=== PATIENT | male | born 1975 | race African-American/Black ===

== ENCOUNTER 2021-03-06 23:42 | Inpatient (IN) | payer OTHER ==
[~2021-03-06] VITALS: Ht 182.9 cm; Wt 61.2 kg
[2021-03-07] VITALS (73 sets, daily range): BP systolic 80–150; BP diastolic 47–97
[2021-03-07] MEDS ORDERED: DEXTROSE 5% WATER 1,000 ML IV ONE (01:15)
[2021-03-07] MEDS ORDERED: DEXTROSE 50% WATER 50ML SYRINGE IV ONE ×2 (01:15→05:30)
[2021-03-07] MEDS ORDERED: VANCOMYCIN 1 G PREMIX 200 ML IV ONE (02:45)
[2021-03-07] MEDS ORDERED: PIPERACILLIN/TAZ 3.375G PREMIX 50 ML IV ONE (02:45)
[2021-03-07 03:42] LABS: CHLORIDE 100 mEq/L (98-107)
[2021-03-07 03:44] LABS: BG CARBOXYHEMOGLOBIN 0.8 % (0.5-1.5); BG DEOXYHEMOGLOBIN 1.8 % (0.0-5.0); BG FRACTION INSPIRED OXYGEN 28; BG HCO3 ACT 29.7 mmol/L (22.0-26.0); BG OXYGEN SATURATION 98.2 % (92.0-98.5); BG OXYHEMOGLOBIN 97.4 % (94.0-97.0); BG PCO2 38.9 mmHg (35.0-45.0); BG PO2 111.7 mmHg (75.0-100.0); BG SAMPLE SITE LEFT RADIAL; BG TOTAL HEMOGLOBIN 8.3 g/dL (12.0-18.0); BG VENT MODE NASAL CANNULA
[2021-03-07 03:46] LABS: ETHANOL BLOOD < 10 mg/dL
[2021-03-07 03:47] LABS: HEMATOCRIT. 23.5 % (42.0-52.0); HEMOGLOBIN. 7.6 g/dL (14.0-18.0); MEAN CORPUSCULAR HEMOGLOBIN 31.6 pg (28.0-32.0); MEAN CORPUSCULAR VOLUME 98.2 fL (80.0-94.0); MEAN PLATELET VOLUME 8.3 fl (7.4-10.4); PLATELET 518 x1000/uL (130-400); RED BLOOD CELL COUNT 2.39 mill/uL (4.7-6.1); RED CELL DISTRIBUTION WIDTH 16.4 % (11.6-14.6)
[2021-03-07] MEDS ORDERED: DEXT 10% WATER 1,000 ML IV ONE (05:30)
[2021-03-07] MEDS ORDERED: LORAZEPAM 2MG/ML CPJ IV ONE (05:30)
[2021-03-07] MEDS ORDERED: IOHEXOL-350 100 ML BOTTLE ONE (05:36)
[2021-03-07 06:20] LABS: PLATELET ESTIMATE INCREASED
[2021-03-07] MEDS ORDERED: ONDANSETRON HCL 4MG/2ML INJ IV PRN (09:00)
[2021-03-07] MEDS ORDERED: IPRATROPIUM/ALBUTEROL 0.5-3(2.5)MG/3ML NEB HHN PRN (09:00)
[2021-03-07] MEDS ORDERED: HYDROCODONE/ACETAMINOPHEN 5/325MG TABLET PO PRN (09:00)
[2021-03-07] MEDS ORDERED: LORAZEPAM 0.5MG TABLET PO PRN (09:00)
[2021-03-07] MEDS ORDERED: CLONIDINE 0.1MG TABLET PO PRN (09:00)
[2021-03-07] MEDS ORDERED: DOCUSATE SODIUM 100MG CAPSULE PO PRN (09:00)
[2021-03-07] MEDS ORDERED: ACETAMINOPHEN 325MG TABLET PO PRN ×2 (09:00)
[2021-03-07] MEDS ORDERED: DEXT 5%/0.9% NACL 1,000 ML IV SCH (09:15)
[2021-03-07] MEDS ORDERED: LACTULOSE 300 ML in WATER FOR IRRIGATION,STERILE 700 ML IR NR ×2 (09:30→11:00)
[2021-03-07] MEDS ORDERED: PHENYLEPHRINE 100 MG in DEXT 5% WATER 240 ML IV PRN ×2 (09:45→23:15)
[2021-03-07] MEDS: VANCOMYCIN 750 MG PREMIX 150 ML IV SCH ×2 (10:50→18:15)
[2021-03-07] MEDS: DEXTROSE 50% WATER 50ML SYRINGE IV PRN ×4 (10:52→22:33)
[2021-03-07] MEDS: BLOOD SUGAR DIAGNOSTIC STRIP TEST SCH ×3 (11:29→21:00)
[2021-03-07] MEDS: INSULIN LISPRO 100 UNITS/ML SUBCUT SCH ×3 (11:29→21:00)
[2021-03-07 12:02] LABS: T4 FREE 1.74 ng/dL (0.76-1.46)
[2021-03-07 12:43] LABS: VITAMIN B12 SERUM > 2000.0 pg/mL (211-911)
[2021-03-07] MEDS: RIFAXIMIN 550 MG TABLET PO SCH ×2 (13:45→22:40)
[2021-03-07] MEDS ORDERED: PIPERACILLIN/TAZOBACTAM 3.375 G in DEXTROSE 5% WATER 50 ML IV SCH (14:00)
[2021-03-07] MEDS: LACTULOSE 20G/30ML UDC PO SCH ×2 (14:00→22:40)
[2021-03-07 14:01] LABS: INR 1.5; PROTHROMBIN TIME 15.4 sec (9.6-11.0)
[2021-03-07] MEDS: PIPERACILLIN/TAZOBACTAM 3.375 G in DEXTROSE 5% WATER 50 ML IV SCH ×2 (14:22→22:40)
[2021-03-07 15:25] LABS: HEMOGLOBIN 9.1 g/dL (14.0-18.0)
[2021-03-07] MEDS: PANTOPRAZOLE SODIUM 40 MG/VIAL IV SCH (16:27)
[2021-03-07] MEDS ORDERED: DEXT 10% WATER 500 ML IV ONE (20:00)
[2021-03-07 23:44] LABS: T4 FREE 1.53 ng/dL (0.76-1.46)
[2021-03-08] VITALS (89 sets, daily range): BP systolic 93–166; BP diastolic 57–93
[2021-03-08] MEDS: DEXTROSE 50% WATER 50ML SYRINGE IV PRN ×4 (02:12→17:54)
[2021-03-08] MEDS: VANCOMYCIN 750 MG PREMIX 150 ML IV SCH ×2 (03:24→10:18)
[2021-03-08 05:25] LABS: CLARITY URINE CLOUDY (CLEAR); COLOR URINE YELLOW (YELLOW); KETONES URINE NEGATIVE (NEGATIVE); LEUKOCYTE ESTERASE URINE NEGATIVE (NEGATIVE); NITRITE URINE NEGATIVE (NEGATIVE); OCCULT BLOOD URINE TRACE (NEGATIVE); PROTEIN URINE TRACE (NEGATIVE); SPECIFIC GRAVITY URINE 1.025 (1.005-1.030); UROBILINOGEN URINE 0.2 E.U./dL (0.2-1.0)
[2021-03-08 05:41] LABS: *AMPHETAMINES SCREEN URINE NEGATIVE (NEGATIVE); *BARBITURATES SCREEN URINE NEGATIVE (NEGATIVE); *BENZODIAZEPINES SCREEN URINE NEGATIVE (NEGATIVE); *COCAINE SCREEN URINE NEGATIVE (NEGATIVE); CANNABINOID URINE SCREEN NEGATIVE (NEGATIVE); METHADONE URINE SCREEN NEGATIVE (NEGATIVE); OPIATES URINE SCREEN NEGATIVE (NEGATIVE); PHENCYCLIDINE URINE SCREEN PRESUMTIVE POSITIVE (NEGATIVE)
[2021-03-08] MEDS: BLOOD SUGAR DIAGNOSTIC STRIP TEST SCH ×4 (05:52→21:55)
[2021-03-08] MEDS: LACTULOSE 20G/30ML UDC PO SCH ×4 (05:53→21:55)
[2021-03-08] MEDS: PIPERACILLIN/TAZOBACTAM 3.375 G in DEXTROSE 5% WATER 50 ML IV SCH ×3 (06:00→20:20)
[2021-03-08] MEDS: INSULIN LISPRO 100 UNITS/ML SUBCUT SCH ×4 (06:00→21:00)
[2021-03-08 06:06] LABS: CHLORIDE 102 mEq/L (98-107)
[2021-03-08 06:13] LABS: INR 1.5; PROTHROMBIN TIME 15.8 sec (9.6-11.0)
[2021-03-08 06:14] LABS: HEMATOCRIT. 22.9 % (42.0-52.0); HEMOGLOBIN. 7.5 g/dL (14.0-18.0); MEAN CORPUSCULAR HEMOGLOBIN 31.9 pg (28.0-32.0); MEAN CORPUSCULAR VOLUME 97.1 fL (80.0-94.0); MEAN PLATELET VOLUME 8.3 fl (7.4-10.4); PLATELET 471 x1000/uL (130-400); RED BLOOD CELL COUNT 2.36 mill/uL (4.7-6.1); RED CELL DISTRIBUTION WIDTH 16.8 % (11.6-14.6)
[2021-03-08 06:15] LABS: HDL CHOLESTEROL 40 mg/dL (40-59)
[2021-03-08 06:25] LABS: FOLIC ACID (FOLATE) SERUM 9.8 ng/mL (>5.38)
[2021-03-08 06:32] LABS: LDL CHOLESTEROL 3 mg/dL (5-100)
[2021-03-08] MEDS ORDERED: LIDOCAINE HCL 1% 30ML VIAL (10MG/ML) ONE ×2 (08:21→15:12)
[2021-03-08] MEDS: DEXT 10% WATER 1,000 ML IV SCH ×2 (09:15→16:50)
[2021-03-08] MEDS: FOLIC ACID 1MG TABLET PO SCH (10:17)
[2021-03-08] MEDS: MULTIVITAMINS,THER W-MINERALS TABLET PO SCH (10:17)
[2021-03-08] MEDS: RIFAXIMIN 550 MG TABLET PO SCH ×2 (10:17→20:20)
[2021-03-08] MEDS: THIAMINE HCL 100MG TABLET PO SCH (10:17)
[2021-03-08] MEDS: PANTOPRAZOLE SODIUM 40 MG/VIAL IV SCH ×2 (10:17→16:48)
[2021-03-08 10:57] LABS: PLATELET ESTIMATE INCREASED
[2021-03-08] MEDS ORDERED: POLYMYXIN B SULFATE 500000 UNITS/VIAL ONE (15:12)
[2021-03-08] MEDS ORDERED: BUPIVACAINE HCL/PF 0.5% (5MG/ML) 10ML ONE (15:12)
[2021-03-08] MEDS ORDERED: VANCOMYCIN HCL 1 GM/VIAL ONE (15:12)
[2021-03-08] MEDS ORDERED: MIDAZOLAM HCL 2 MG/2 ML VIAL ONE (15:57)
[2021-03-08] MEDS ORDERED: FENTANYL CITRATE/PF 50MCG/ML 2ML VIAL ONE (15:57)
[2021-03-08 19:23] LABS: CHLORIDE 101 mEq/L (98-107)
[2021-03-08 19:32] LABS: HEMATOCRIT. 30.2 % (42.0-52.0); HEMOGLOBIN. 9.7 g/dL (14.0-18.0); MEAN CORPUSCULAR HEMOGLOBIN 29.7 pg (28.0-32.0); MEAN CORPUSCULAR VOLUME 92.6 fL (80.0-94.0); MEAN PLATELET VOLUME 7.9 fl (7.4-10.4); PLATELET 420 x1000/uL (130-400); RED BLOOD CELL COUNT 3.27 mill/uL (4.7-6.1); RED CELL DISTRIBUTION WIDTH 19.7 % (11.6-14.6)
[2021-03-08 21:37] LABS: PLATELET ESTIMATE INCREASED
[2021-03-09] VITALS (94 sets, daily range): BP systolic 92–133; BP diastolic 48–93
[2021-03-09] MEDS: VANCOMYCIN 1 G PREMIX 200 ML IV SCH ×3 (00:04→20:20)
[2021-03-09] MEDS: DEXT 10% WATER 1,000 ML IV SCH ×2 (05:37→20:19)
[2021-03-09] MEDS: PIPERACILLIN/TAZOBACTAM 3.375 G in DEXTROSE 5% WATER 50 ML IV SCH ×3 (05:38→21:53)
[2021-03-09] MEDS: LACTULOSE 20G/30ML UDC PO SCH ×3 (05:38→21:02)
[2021-03-09] MEDS: INSULIN LISPRO 100 UNITS/ML SUBCUT SCH ×4 (07:00→21:03)
[2021-03-09] MEDS: BLOOD SUGAR DIAGNOSTIC STRIP TEST SCH ×4 (07:00→20:56)
[2021-03-09] MEDS: RIFAXIMIN 550 MG TABLET PO SCH ×2 (09:10→20:19)
[2021-03-09] MEDS: MULTIVITAMINS,THER W-MINERALS TABLET PO SCH (09:10)
[2021-03-09] MEDS: PANTOPRAZOLE SODIUM 40 MG/VIAL IV SCH ×2 (09:10→17:02)
[2021-03-09] MEDS: FOLIC ACID 1MG TABLET PO SCH (09:11)
[2021-03-09] MEDS: THIAMINE HCL 100MG TABLET PO SCH (09:11)
[2021-03-09] MEDS: MIDODRINE HCL 5MG TABLET PO SCH ×3 (09:47→17:02)
[2021-03-10] VITALS (50 sets, daily range): BP systolic 85–114; BP diastolic 51–81
[2021-03-10] MEDS: PIPERACILLIN/TAZOBACTAM 3.375 G in DEXTROSE 5% WATER 50 ML IV SCH ×3 (05:37→22:38)
[2021-03-10] MEDS: LACTULOSE 20G/30ML UDC PO SCH ×3 (05:44→22:37)
[2021-03-10 05:45] LABS: BASOPHILS % 0.2 % (0.0-2.0); EOSINOPHILS % 0.7 % (0.0-5.0); HEMATOCRIT. 27.7 % (42.0-52.0); LYMPHOCYTES % 10.9 % (20.0-50.0); MEAN CORPUSCULAR HEMOGLOBIN 29.8 pg (28.0-32.0); MEAN CORPUSCULAR VOLUME 91.5 fL (80.0-94.0); MEAN PLATELET VOLUME 8.1 fl (7.4-10.4); MONOCYTES % 5.1 % (2.0-8.0); NEUTROPHILS % 83.1 % (40.0-76.0); PLATELET 352 x1000/uL (130-400); RED BLOOD CELL COUNT 3.02 mill/uL (4.7-6.1); RED CELL DISTRIBUTION WIDTH 19.3 % (11.6-14.6)
[2021-03-10] MEDS: INSULIN LISPRO 100 UNITS/ML SUBCUT SCH ×4 (07:00→21:00)
[2021-03-10 07:08] LABS: CHLORIDE 101 mEq/L (98-107)
[2021-03-10] MEDS: BLOOD SUGAR DIAGNOSTIC STRIP TEST SCH ×4 (07:09→21:00)
[2021-03-10] MEDS: PANTOPRAZOLE SODIUM 40 MG/VIAL IV SCH ×2 (08:40→16:37)
[2021-03-10] MEDS: MULTIVITAMINS,THER W-MINERALS TABLET PO SCH (08:40)
[2021-03-10] MEDS: RIFAXIMIN 550 MG TABLET PO SCH ×2 (08:40→20:59)
[2021-03-10] MEDS: FOLIC ACID 1MG TABLET PO SCH (08:40)
[2021-03-10] MEDS: THIAMINE HCL 100MG TABLET PO SCH (08:40)
[2021-03-10] MEDS: VANCOMYCIN 1 G PREMIX 200 ML IV SCH ×2 (08:40→21:00)
[2021-03-10] MEDS: MIDODRINE HCL 5MG TABLET PO SCH ×3 (08:41→16:37)
[2021-03-10] MEDS: DEXT 10% WATER 1,000 ML IV SCH (11:15)
[2021-03-11] VITALS (36 sets, daily range): BP systolic 97–162; BP diastolic 60–133
[2021-03-11] MEDS: PIPERACILLIN/TAZOBACTAM 3.375 G in DEXTROSE 5% WATER 50 ML IV SCH ×2 (05:37→14:54)
[2021-03-11] MEDS: LACTULOSE 20G/30ML UDC PO SCH ×2 (05:42→14:00)
[2021-03-11 05:51] LABS: BASOPHILS % 0.1 % (0.0-2.0); HEMATOCRIT. 26.2 % (42.0-52.0); HEMOGLOBIN. 8.8 g/dL (14.0-18.0); LYMPHOCYTES % 14.8 % (20.0-50.0); MEAN CORPUSCULAR HEMOGLOBIN 30.6 pg (28.0-32.0); MEAN CORPUSCULAR VOLUME 91.2 fL (80.0-94.0); MEAN PLATELET VOLUME 8.3 fl (7.4-10.4); MONOCYTES % 5.9 % (2.0-8.0); NEUTROPHILS % 78.2 % (40.0-76.0); PLATELET 320 x1000/uL (130-400); RED BLOOD CELL COUNT 2.88 mill/uL (4.7-6.1); RED CELL DISTRIBUTION WIDTH 19.1 % (11.6-14.6)
[2021-03-11 05:53] LABS: CHLORIDE 103 mEq/L (98-107)
[2021-03-11] MEDS: INSULIN LISPRO 100 UNITS/ML SUBCUT SCH ×4 (06:15→21:26)
[2021-03-11] MEDS: BLOOD SUGAR DIAGNOSTIC STRIP TEST SCH ×4 (06:15→21:23)
[2021-03-11] MEDS: PANTOPRAZOLE SODIUM 40 MG/VIAL IV SCH ×2 (08:09→16:37)
[2021-03-11] MEDS: VANCOMYCIN 1 G PREMIX 200 ML IV SCH (08:09)
[2021-03-11] MEDS: THIAMINE HCL 100MG TABLET PO SCH (08:10)
[2021-03-11] MEDS: RIFAXIMIN 550 MG TABLET PO SCH ×2 (08:10→22:52)
[2021-03-11] MEDS: MULTIVITAMINS,THER W-MINERALS TABLET PO SCH (08:10)
[2021-03-11] MEDS: FOLIC ACID 1MG TABLET PO SCH (08:10)
[2021-03-11] MEDS: MIDODRINE HCL 5MG TABLET PO SCH ×3 (08:10→16:37)
[2021-03-11] MEDS ORDERED: POTASSIUM CHLORIDE 20MEQ TABLET SR PO NR (15:45)
[2021-03-11] MEDS: CEFEPIME 2,000 MG in DEXT 5% WATER 100 ML IV SCH (22:52)
[2021-03-12] VITALS: BP 100/68
[2021-03-12 04:00] VITALS: BP 111/85
[2021-03-12] MEDS: INSULIN LISPRO 100 UNITS/ML SUBCUT SCH ×4 (06:12→20:52)
[2021-03-12] MEDS: BLOOD SUGAR DIAGNOSTIC STRIP TEST SCH ×4 (06:13→20:44)
[2021-03-12 07:37] LABS: BASOPHILS % 0.2 % (0.0-2.0); EOSINOPHILS % 0.6 % (0.0-5.0); HEMATOCRIT. 28.3 % (42.0-52.0); HEMOGLOBIN. 9.5 g/dL (14.0-18.0); LYMPHOCYTES % 11.5 % (20.0-50.0); MEAN CORPUSCULAR HEMOGLOBIN 30.6 pg (28.0-32.0); MEAN CORPUSCULAR VOLUME 90.9 fL (80.0-94.0); MEAN PLATELET VOLUME 8.5 fl (7.4-10.4); MONOCYTES % 6.1 % (2.0-8.0); NEUTROPHILS % 81.6 % (40.0-76.0); PLATELET 305 x1000/uL (130-400); RED BLOOD CELL COUNT 3.11 mill/uL (4.7-6.1); RED CELL DISTRIBUTION WIDTH 18.7 % (11.6-14.6)
[2021-03-12 08:00] VITALS: BP 105/78
[2021-03-12 08:05] LABS: CHLORIDE 103 mEq/L (98-107)
[2021-03-12] MEDS: PANTOPRAZOLE SODIUM 40 MG/VIAL IV SCH ×2 (08:38→17:21)
[2021-03-12] MEDS: LACTULOSE 20G/30ML UDC PO SCH (08:38)
[2021-03-12] MEDS: RIFAXIMIN 550 MG TABLET PO SCH (08:39)
[2021-03-12] MEDS: MULTIVITAMINS,THER W-MINERALS TABLET PO SCH (08:39)
[2021-03-12] MEDS: FOLIC ACID 1MG TABLET PO SCH (08:40)
[2021-03-12] MEDS: CEFEPIME 2,000 MG in DEXT 5% WATER 100 ML IV SCH ×2 (08:41→20:43)
[2021-03-12] MEDS: THIAMINE HCL 100MG TABLET PO SCH (08:41)
[2021-03-12] MEDS: MIDODRINE HCL 5MG TABLET PO SCH ×3 (08:42→16:50)
[2021-03-12 12:00] VITALS: BP 102/74
[2021-03-12 16:00] VITALS: BP 114/79
[2021-03-12 20:00] VITALS: BP 121/81
[2021-03-13] VITALS: BP 110/56
[2021-03-13 04:00] VITALS: BP 117/78
[2021-03-13] MEDS: BLOOD SUGAR DIAGNOSTIC STRIP TEST SCH ×4 (06:03→21:05)
[2021-03-13 06:46] LABS: BASOPHILS % 0.3 % (0.0-2.0); EOSINOPHILS % 0.6 % (0.0-5.0); HEMATOCRIT. 24.9 % (42.0-52.0); HEMOGLOBIN. 8.2 g/dL (14.0-18.0); LYMPHOCYTES % 14.3 % (20.0-50.0); MEAN CORPUSCULAR VOLUME 91.6 fL (80.0-94.0); MEAN PLATELET VOLUME 8.5 fl (7.4-10.4); MONOCYTES % 6.7 % (2.0-8.0); NEUTROPHILS % 78.1 % (40.0-76.0); PLATELET 255 x1000/uL (130-400); RED BLOOD CELL COUNT 2.72 mill/uL (4.7-6.1); RED CELL DISTRIBUTION WIDTH 18.4 % (11.6-14.6)
[2021-03-13] MEDS: INSULIN LISPRO 100 UNITS/ML SUBCUT SCH ×4 (06:55→21:00)
[2021-03-13 07:03] LABS: CHLORIDE 103 mEq/L (98-107)
[2021-03-13 08:00] VITALS: BP 106/77
[2021-03-13] MEDS: CEFEPIME 2,000 MG in DEXT 5% WATER 100 ML IV SCH ×2 (08:51→21:05)
[2021-03-13] MEDS: PANTOPRAZOLE SODIUM 40 MG/VIAL IV SCH ×2 (08:51→17:18)
[2021-03-13] MEDS: THIAMINE HCL 100MG TABLET PO SCH (08:51)
[2021-03-13] MEDS: MULTIVITAMINS,THER W-MINERALS TABLET PO SCH (08:51)
[2021-03-13] MEDS: FOLIC ACID 1MG TABLET PO SCH (08:51)
[2021-03-13] MEDS: MIDODRINE HCL 5MG TABLET PO SCH ×3 (08:53→17:12)
[2021-03-13] MEDS: LACTULOSE 20G/30ML UDC PO SCH (09:00)
[2021-03-13 12:00] VITALS: BP 110/75
[2021-03-13 16:00] VITALS: BP 103/77
[2021-03-13 20:00] VITALS: BP 107/79
[2021-03-14] VITALS: BP 102/68
[2021-03-14 04:00] VITALS: BP 103/72
[2021-03-14] MEDS: BLOOD SUGAR DIAGNOSTIC STRIP TEST SCH ×4 (06:21→20:09)
[2021-03-14] MEDS: INSULIN LISPRO 100 UNITS/ML SUBCUT SCH ×4 (06:37→20:14)
[2021-03-14 08:00] VITALS: BP 104/73
[2021-03-14] MEDS: THIAMINE HCL 100MG TABLET PO SCH (08:42)
[2021-03-14] MEDS: FOLIC ACID 1MG TABLET PO SCH (08:42)
[2021-03-14] MEDS: MIDODRINE HCL 5MG TABLET PO SCH ×3 (08:43→17:49)
[2021-03-14] MEDS: MULTIVITAMINS,THER W-MINERALS TABLET PO SCH (08:44)
[2021-03-14] MEDS: CEFEPIME 2,000 MG in DEXT 5% WATER 100 ML IV SCH ×2 (08:51→20:09)
[2021-03-14] MEDS: PANTOPRAZOLE SODIUM 40 MG/VIAL IV SCH ×2 (08:51→18:02)
[2021-03-14] MEDS: LACTULOSE 20G/30ML UDC PO SCH (08:51)
[2021-03-14 12:00] VITALS: BP 110/74
[2021-03-14 16:00] VITALS: BP 108/80
[2021-03-14 20:00] VITALS: BP 102/74
[2021-03-15] VITALS (7 sets, daily range): BP systolic 97–118; BP diastolic 65–80
[2021-03-15] MEDS: BLOOD SUGAR DIAGNOSTIC STRIP TEST SCH ×4 (06:28→21:35)
[2021-03-15] MEDS: INSULIN LISPRO 100 UNITS/ML SUBCUT SCH ×4 (06:33→21:45)
[2021-03-15] MEDS: CEFEPIME 2,000 MG in DEXT 5% WATER 100 ML IV SCH ×2 (08:58→21:35)
[2021-03-15] MEDS: FOLIC ACID 1MG TABLET PO SCH (08:59)
[2021-03-15] MEDS: PANTOPRAZOLE SODIUM 40 MG/VIAL IV SCH ×2 (08:59→16:58)
[2021-03-15] MEDS: MIDODRINE HCL 5MG TABLET PO SCH ×3 (08:59→16:58)
[2021-03-15] MEDS: MULTIVITAMINS,THER W-MINERALS TABLET PO SCH (08:59)
[2021-03-15] MEDS: THIAMINE HCL 100MG TABLET PO SCH (08:59)
[2021-03-16 04:51] VITALS: BP 99/48
[2021-03-16] MEDS: BLOOD SUGAR DIAGNOSTIC STRIP TEST SCH ×4 (05:54→21:00)
[2021-03-16] MEDS: INSULIN LISPRO 100 UNITS/ML SUBCUT SCH ×4 (05:59→21:00)
[2021-03-16 08:00] VITALS: BP 134/57
[2021-03-16 08:29] LABS: BASOPHILS % 0.6 % (0.0-2.0); EOSINOPHILS % 1.1 % (0.0-5.0); HEMATOCRIT. 32.4 % (42.0-52.0); HEMOGLOBIN. 10.7 g/dL (14.0-18.0); LYMPHOCYTES % 15.6 % (20.0-50.0); MEAN CORPUSCULAR HEMOGLOBIN 30.5 pg (28.0-32.0); MEAN CORPUSCULAR VOLUME 92.5 fL (80.0-94.0); MEAN PLATELET VOLUME 8.1 fl (7.4-10.4); MONOCYTES % 8.8 % (2.0-8.0); NEUTROPHILS % 73.9 % (40.0-76.0); PLATELET 333 x1000/uL (130-400); RED CELL DISTRIBUTION WIDTH 18.8 % (11.6-14.6)
[2021-03-16 08:37] LABS: CHLORIDE 100 mEq/L (98-107)
[2021-03-16] MEDS ORDERED: LIDOCAINE HCL/PF 2% 20MG/ML 5 ML/VIAL INJ SCH (09:30)
[2021-03-16] MEDS: MULTIVITAMINS,THER W-MINERALS TABLET PO SCH (10:50)
[2021-03-16] MEDS: PANTOPRAZOLE SODIUM 40 MG/VIAL IV SCH ×2 (10:50→17:51)
[2021-03-16] MEDS: FOLIC ACID 1MG TABLET PO SCH (10:50)
[2021-03-16] MEDS: THIAMINE HCL 100MG TABLET PO SCH (10:50)
[2021-03-16] MEDS: MIDODRINE HCL 5MG TABLET PO SCH ×3 (10:50→17:50)
[2021-03-16] MEDS: CEFEPIME 2,000 MG in DEXT 5% WATER 100 ML IV SCH ×2 (10:50→22:11)
[2021-03-16 12:08] VITALS: BP 114/83
[2021-03-16 16:00] VITALS: BP 83/46
[2021-03-16 20:00] VITALS: BP 81/62
[2021-03-16] MEDS ORDERED: MIDODRINE HCL 5MG TABLET PO NR (21:30)
[2021-03-16] MEDS ORDERED: ALBUMIN HUMAN 25GM/100ML (25%) IV NR (22:00)
[2021-03-17] VITALS: BP 72/43
[2021-03-17] MEDS ORDERED: SODIUM CHLORIDE 0.9% 250 ML IV ONE (00:45)
[2021-03-17 01:45] VITALS: BP 105/69
[2021-03-17 04:00] VITALS: BP 95/51
[2021-03-17] MEDS: BLOOD SUGAR DIAGNOSTIC STRIP TEST SCH ×2 (06:23→11:40)
[2021-03-17] MEDS: INSULIN LISPRO 100 UNITS/ML SUBCUT SCH ×2 (06:26→13:06)
[2021-03-17 08:00] VITALS: BP 96/71
[2021-03-17 09:34] LABS: BASOPHILS % 0.7 % (0.0-2.0); HEMOGLOBIN. 10.5 g/dL (14.0-18.0); LYMPHOCYTES % 14.9 % (20.0-50.0); MEAN CORPUSCULAR HEMOGLOBIN 30.3 pg (28.0-32.0); MEAN CORPUSCULAR VOLUME 92.8 fL (80.0-94.0); MEAN PLATELET VOLUME 8.1 fl (7.4-10.4); MONOCYTES % 8.5 % (2.0-8.0); NEUTROPHILS % 74.9 % (40.0-76.0); PLATELET 449 x1000/uL (130-400); RED BLOOD CELL COUNT 3.45 mill/uL (4.7-6.1); RED CELL DISTRIBUTION WIDTH 19.3 % (11.6-14.6)
[2021-03-17 09:47] LABS: CHLORIDE 101 mEq/L (98-107)
[2021-03-17] MEDS: CEFEPIME 2,000 MG in DEXT 5% WATER 100 ML IV SCH (11:47)
[2021-03-17] MEDS: PANTOPRAZOLE SODIUM 40 MG/VIAL IV SCH (11:47)
[2021-03-17] MEDS: FOLIC ACID 1MG TABLET PO SCH (11:48)
[2021-03-17] MEDS: MIDODRINE HCL 5MG TABLET PO SCH ×2 (11:48→13:06)
[2021-03-17] MEDS: MULTIVITAMINS,THER W-MINERALS TABLET PO SCH (11:48)
[2021-03-17] MEDS: THIAMINE HCL 100MG TABLET PO SCH (11:48)
[2021-03-17 12:00] VITALS: BP 99/71
[2021-03-17 15:19] VITALS: BP 99/71
== END 2021-03-17 16:00 | DRG 710 ==
LOC: EDBD 23:42 → ER 23:42 → EDBEDREQTM 03-07 05:31 → EDBEDREQSVC 03-07 05:31 → MICUSO 03-07 05:33 → EDBEDREQ 03-07 05:34 → ENRESERV 03-07 07:37 → 7EST 03-11 18:13
PROVIDERS: ADMIT Internal Medicine; ATTEND Internal Medicine
PROC: 0Y6N0Z0 Detachment at Left Foot, Complete, Open Approach (ICD-10-PCS; principal; 2021-03-08)
PROC: 05HY33Z Insertion of Infusion Device into Upper Vein, Percutaneous Approach (ICD-10-PCS; 2021-03-08)
PROC: B54MZZA Ultrasonography of Right Upper Extremity Veins, Guidance (ICD-10-PCS; 2021-03-08)
PROC: 30233N1 Transfusion of Nonautologous Red Blood Cells into Peripheral Vein, Percutaneous Approach (ICD-10-PCS; 2021-03-08)
PROC: 30233K1 Transfusion of Nonautologous Frozen Plasma into Peripheral Vein, Percutaneous Approach (ICD-10-PCS; 2021-03-08)
PROC: 4A10X4Z Monitoring of Central Nervous Electrical Activity, External Approach (ICD-10-PCS; 2021-03-08)
DX: A41.9 Sepsis, unspecified organism (principal); J96.01 Acute respiratory failure with hypoxia; R65.21 Severe sepsis with septic shock; A48.0 Gas gangrene; E44.0 Moderate protein-calorie malnutrition; G92.8 Other toxic encephalopathy; E72.20 Disorder of urea cycle metabolism, unspecified; I70.262 Atherosclerosis of native arteries of extremities with gangrene, left leg; D68.9 Coagulation defect, unspecified; L89.150 Pressure ulcer of sacral region, unstageable; J68.0 Bronchitis and pneumonitis due to chemicals, gases, fumes and vapors; K72.90 Hepatic failure, unspecified without coma; B87.9 Myiasis, unspecified; D64.9 Anemia, unspecified; E11.649 Type 2 diabetes mellitus with hypoglycemia without coma; E78.5 Hyperlipidemia, unspecified; J44.9 Chronic obstructive pulmonary disease, unspecified; I10 Essential (primary) hypertension; F10.10 Alcohol abuse, uncomplicated; Y90.0 Blood alcohol level of less than 20 mg/100 ml; R74.01 Elevation of levels of liver transaminase levels; Z20.822 Contact with and (suspected) exposure to COVID-19; R94.31 Abnormal electrocardiogram [ECG] [EKG]; L97.429 Non-pressure chronic ulcer of left heel and midfoot with unspecified severity; D75.839 Thrombocytosis, unspecified; F16.10 Hallucinogen abuse, uncomplicated; R20.0 Anesthesia of skin; R26.89 Other abnormalities of gait and mobility; F32.A Depression, unspecified; M86.172 Other acute osteomyelitis, left ankle and foot; E11.69 Type 2 diabetes mellitus with other specified complication; B96.4 Proteus (mirabilis) (morganii) as the cause of diseases classified elsewhere; E11.621 Type 2 diabetes mellitus with foot ulcer; L02.612 Cutaneous abscess of left foot; S91.301A Unspecified open wound, right foot, initial encounter; T59.891A Toxic effect of other specified gases, fumes and vapors, accidental (unintentional), initial encounter; X58.XXXA Exposure to other specified factors, initial encounter; Y93.89 Activity, other specified; Y99.8 Other external cause status; Y92.89 Other specified places as the place of occurrence of the external cause; Z59.00 Homelessness unspecified; Z82.49 Family history of ischemic heart disease and other diseases of the circulatory system; Z68.1 Body mass index [BMI] 19.9 or less, adult; Z89.412 Acquired absence of left great toe
CPT/HCPCS: 36415; 36600; 70551; 71045; 73590; 73620; 73706; 76700; 76937; 80048; 80053; 80061; 80076; 80202; 80305; 80307; 80320; 80329; 81003; 82040; 82140; 82270; 82375; 82533; 82607; 82728; 82746; 82805; 82962; 83036; 83540; 83550; 83605; 84132; 84134; 84145; 84439; 84443; 84481; 84484; 85018; 85025; 85044; 86850; 86900; 86920; 86927; 87070; 87075; 87077; 87186; 87426; 87493; 88305; 88311; 92610; 93005; 93306; 97022; 97116; 97161; 97164; 97166; 97535; 99291; C1725; C9113; J0692; J1815; J2060; J2250; J2370; J2543; J3010; J3370; J3490; J7040; J7042; J7060; J7070; L3908; P9016; P9017; P9047; Q9967; A4315; G0480